=== PATIENT | female | born 1975 | race Two or more races ===

== ENCOUNTER 2018-04-15 00:10 | Emergency (ER) | payer MEDICAID ==
[~2018-04-15] VITALS: Ht 154.9 cm; Wt 60.8 kg
[2018-04-15 00:17] VITALS: Ht 154.9 cm; Wt 60.8 kg
[2018-04-15 01:07] VITALS: BP 118/65
== END 2018-04-15 01:07 | disposition home or self-care (01) ==
LOC: ED 00:10
DX: S01.512A Laceration without foreign body of oral cavity, initial encounter (principal); V43.52XA Car driver injured in collision with other type car in traffic accident, initial encounter; Y93.I9 Activity, other involving external motion; Y92.488 Other paved roadways as the place of occurrence of the external cause; Y99.8 Other external cause status